=== PATIENT | male | born 1945 | race Caucasian/White ===

== ENCOUNTER 2017-01-02 22:15 | Emergency (ER) | payer OTHER ==
[~2017-01-02] VITALS: Ht 175.3 cm; Wt 88.5 kg
[2017-01-02 22:22] VITALS: TEMP 36.8; Ht 175.3 cm; Wt 88.5 kg
--- NOTE | 2017-01-02 22:49 | DIAGNOSTIC IMAGING REPORT ---
HEAD WITHOUT CONTRAST (CT) CLINICAL HISTORY: 71 years-old Male presenting with fall, head injury, LOC, on ASA. TECHNIQUE: Multidetector CT imaging of the head was performed without the use of intravenous contrast. IV contrast: None. A dose lowering technique was used consistent with the principles of ALARA (as low as reasonably achievable). COMPARISON: None. CT DOSE (mGy.cm): The estimated cumulative dose is 1100.[address] cervical spine. FINDINGS: Water Resource Engineer topogram: Unremarkable. Ventricles and sulci normal in size. Brain parenchyma normal in appearance with preserved alvarez-white differentiation. No mass effect or midline shift. No hemorrhage or acute territorial infarct. No extra-axial fluid collection. Paranasal sinuses and mastoid air cells clear. Calvarium intact. IMPRESSION: 1. No acute intracranial pathology. Electronically signed by: Austin Salazar M.D. 01/02/2017 10:48 PM Dictated Date/Time: 01/02/2017 10:46 PM
--- NOTE | 2017-01-02 22:55 | DIAGNOSTIC IMAGING REPORT ---
CERVICAL SPINE W/O CLINICAL HISTORY: 71 years-old Male presenting with fall, head injury, LOC, on ASA. TECHNIQUE: Multidetector CT of the cervical spine was performed without the use of intravenous contrast. IV contrast: None. A dose lowering technique was used consistent with the principles of ALARA (as low as reasonably achievable). COMPARISON: None. CT DOSE (mGy.cm): The estimated cumulative dose is 1100.08 mGy.cm. FINDINGS: News Cameraman topogram: Unremarkable. Straightening of normal cervical lordosis, likely positional. 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 No acute fracture or subluxation. Minimal degenerative change in the lower cervical region. No osseous neural foraminal or spinal canal narrowing. Paraspinal soft tissues normal. Lung apices clear. IMPRESSION: No acute osseous injury of the cervical spine. Electronically signed by: Austin Salazar M.D. 01/02/2017 10:53 PM Dictated Date/Time: 01/02/2017 10:50 PM
[2017-01-02] MEDS ORDERED: AMLO-110 PO (23:25)
[2017-01-02] MEDS ORDERED: GLIP-199 PO (23:25)
[2017-01-02] MEDS ORDERED: LISI10TA PO (23:25)
[2017-01-02] MEDS ORDERED: ATOR-24 PO (23:25)
[2017-01-02] MEDS ORDERED: ASPI81TA28 PO (23:25)
[2017-01-02 23:35] VITALS: BP 151/76; PULSE 68; O2SAT 96
--- NOTE | 2017-01-03 07:03 | EMERGENCY ROOM VISIT NOTE ---
History First contact with patient: 22:17 Chief Complaint: FALL Stated Complaint: FALL W/ LOC History of Present Illness The patient is a 71 year old male who presents to the Emergency Room with complaints of head injury after he tripped and fell over the dog striking his head on the fridge. Patient had brief LOC. Patient complains of a mild headache. 2 out of 10 described as throbbing to the occipital region. Nothing makes it better or worse. Patient denies chest pain, dyspnea, neck pain, abdominal pain, back pain, syncope, fever, chills, lightheadedness, dizziness or any other medical complaints. Patient is on a baby aspirin. No alcohol or drugs. Review of Systems See HPI for pertinent positives & negatives. A total of 10 systems reviewed and were otherwise negative. Past Medical/Surgical History Diabetes, hypertension, hyperlipidemia Social History Smoking Status: Never Smoker Smokeless Tobacco Use: No Alcohol Use: none Drug Use: none Marital Status: Housing Status: lives with family Current/Historical Medications Scheduled Amlodipine (Norvasc), 5 MG PO DAILY Aspirin (Aspirin Ec), 81 MG PO DAILY Atorvastatin (Lipitor), 40 MG PO DAILY Glipizide (Glipizide Er), 10 MG PO BID Lisinopril (Prinivil), 10 MG PO DAILY Physical Exam Vital Signs Date Time Temp Pulse Resp B/P (MAP) Pulse Ox O2 Delivery O2 Flow Rate FiO2 01/02/17 23:35 68 18 151/76 96 01/02/17 22:22 36.8 82 16 193/87 96 Room Air Pain Rating (0-10): 0 Physical Exam VITALS: Vitals are noted on the nurse's note and reviewed by myself. Vital signs stable. GENERAL: Pleasant male, in no acute distress, nondiaphoretic, well-developed well-nourished. SKIN: The skin was without rashes, erythema, edema, or bruising. There is no tenting of the skin. Capillary reflex less than 2 seconds. HEAD: Normocephalic atraumatic. EARS: External auditory canals clear, tympanic membranes pearly alvarez without erythema or effusion bilaterally. EYES: Pupils equal round and reactive to light and accommodation. Conjunctivae without injection, sclerae without icterus. Extraocular movements intact. NOSE: Patent, turbinates without inflammation or discharge. No sinus tenderness. MOUTH: Mucous membranes moist. Pharynx without erythema or exudate. Uvula midline. Airway patent. Tongue does not deviate. NECK: Supple without nuchal rigidity. No lymphadenopathy. No thyromegaly. Cervical spine is nontender. No JVD. HEART: Regular rate and rhythm LUNGS: Clear to auscultation bilaterally without wheezes, rales or rhonchi. No dullness to percussion. No retractions or accessory muscle use. ABDOMEN: Positive bowel sounds x 4. Normal tympanic percussion. Soft, nontender, without masses or organomegaly. Bartlett sign negative. No guarding or rebound tenderness. MUSCULOSKELETAL: No muscle atrophy, erythema, or edema noted. No thoracic or lumbar tenderness on exam. 5 out of 5 strength throughout NEURO: Patient was alert and oriented to person place and time. Normal sensation to light and sharp touch. No focal neurological deficits. Cranial nerves II through XII grossly intact. No pronator drift. Cerebellar exam intact. Medical Decision & Procedures ED Course Prior records/ancillary studies reviewed. Triage Nursing notes reviewed. Additional history obtained from family. The patient's history was concerning for traumatic head injury Differential diagnosis: Etiologies such as concussion, contusion, fracture, subdural hematoma, epidural hematoma, intraparenchymal hemorrhage, as well as other traumatic pathologies were entertained. Physical examination findings: As above. ER treatment provided: By mouth fluids On reassessment the patient felt better. Diagnostics interpreted by me: Imaging studies: Head and cervical CT negative for intracranial bleed or fracture per radiology It appears the patient has a head injury. Negative imaging as above. Patient is neurovascularly and neurologically intact. Patient was Counseled on Head Injury Signs and Symptoms and Verbalized Understanding of This. He Is Advised to Follow-Up Family Care in A Few Days or Here in the ER Sooner for Headache, Fevers, Confusion, Worsening Signs or Symptoms or As Needed. By the evaluation outlined above emergent etiologies such as fracture, subdural hematoma, epidural hematoma, intraparenchymal hemorrhage, as well as others were deemed relatively unlikely. The pt informed about the findings as listed above. All questions were answered and pleased with the treatment. Return instructions were outlined and the patient was discharged in stable condition. Case reviewed with my attending Referral: The patient was referred back to their primary care physician for follow-up in 2 to 3 days for a recheck of the current condition. Medical Decision As above Head Trauma GCS Score: 15 Medication Reconcilliation Current Medication List: was personally reviewed by me Blood Pressure Screening Patient's blood pressure: Normal blood pressure Impression Primary Impression: Head injury Additional Impression: Fall Departure Information Dispostion Home / Self-Care Condition GOOD Forms HOME CARE DOCUMENTATION FORM, IMPORTANT VISIT INFORMATION Patient Instructions My [facility], ED Head Injury Closed Additional Instructions Read head injury handout and return for any symptoms. Tylenol 1000 mg as needed for pain (Maximum 3000 mg Tylenol in 24 hr period). Avoid alcohol and contact sports/activities for one week and follow up with family doctor prior to returning to these activities if still symptomatic. Ice and elevate head. If your symptoms persist more than a week then follow up with the concussion clinic. Call [phone]. Return to ER sooner for headache, fevers, confusion, worsening signs or symptoms or as needed. Problem Qualifiers Primary Impression: Head injury Encounter type: initial encounter Qualified Codes: S09.90XA - Unspecified injury of head, initial encounter
== END 2017-01-02 23:35 | disposition home or self-care (01) ==
LOC: EDBD 22:15 → C.EDC 22:16
DX: S09.90XA Unspecified injury of head, initial encounter (principal); W01.0XXA Fall on same level from slipping, tripping and stumbling without subsequent striking against object, initial encounter; Z79.82 Long term (current) use of aspirin; Z79.899 Other long term (current) drug therapy